=== PATIENT | male | born 1935 | race Caucasian/White ===

== ENCOUNTER 2016-12-26 05:49 | Inpatient (IN) | payer OTHER ==
[~2016-12-26] VITALS: Ht 177.8 cm; Wt 94.7 kg
[~2016-12-26 05:49] MED LIST: AMLODIPINE BESY10 MG PO; ASPIRIN PO; CALCITRIOL0.5 MCG PO; CILOSTAZOL100 MG PO; CRESTOR40 MG PO; HUMULIN 70100 UNIT/1 SC; LISINOPRIL40 MG PO; METOPROLOL TAR100 MG PO; NITROSTAT0.4 MG SL; VITAMIN D-32000 UNI1 PO
[2016-12-26 06:29] LABS: HEMATOCRIT 36.1 % (38.0-50.0); MCH 26.9 PG (29.0-34.0); MCHC 32.1 G/DL (30.0-36.0); MCV 83.8 FL (86-99); MEAN PLAT.VOLUME 10.3 uM^3 (9.0-12.4); PLATELET COUNT 170 K/uL (156-360); RBC DIS.WIDTH-CV 14.4 % (11.8-14.6); RBC DIS.WIDTH-SD 42.5 % (39-53); RED BLOOD COUNT 4.31 M/uL (4.00-5.50); WHITE BLOOD COUNT 7.9 K/uL (4.1-10.2)
[2016-12-26 06:39] LABS: CHLORIDE 109 mEq/L (99-109); POTASSIUM 4.1 mEq/L (3.7-5.4); SODIUM 140 mEq/L (136-147)
[2016-12-26 06:41] LABS: GLUCOSE 140 mg/dL (70-99)
[2016-12-26 06:42] LABS: ANION GAP 11 MEQ/L (2-14)
[2016-12-26 06:45] LABS: GFR ESTIMATE (CALCULATED) 36 mL/min/
[2016-12-26 06:46] LABS: UREA NITROGEN (BUN) 25 mg/dL (9-23)
[2016-12-26 06:49] LABS: D-DIMER ELISA > 4.00 mg/L FEU (< 0.57)
[2016-12-26 06:50] LABS: TROP-I INTERPRETATION NEGATIVE; TROPONIN-I 0.04 ng/mL (0.0-0.30)
[2016-12-26 13:44] LABS: INTER. NORMALIZED RATIO 1.1; PROTHROMBIN TIME 10.7 (9.2-11.2); PTT 28.2 (25-32)
[2016-12-26] MEDS ORDERED: NORVASC5 MG PO (14:17)
[2016-12-26] MEDS ORDERED: CALCITRIOL0.5 MCG PO (14:17)
[2016-12-26] MEDS ORDERED: CARDURA2 M1 PO (14:18)
[2016-12-26] MEDS ORDERED: ZESTRIL40 MG PO (14:18)
[2016-12-26] MEDS ORDERED: NOVOLIN,HU100 UNITS/ SC ×2 (14:20→14:22)
[2016-12-26] MEDS ORDERED: TAMIFLU75 MG PO (14:23)
[2016-12-26] MEDS ORDERED: CILOSTAZOL100 MG PO (14:24)
[2016-12-26] MEDS ORDERED: LOPRESSOR100 M1 PO (14:25)
[2016-12-26] MEDS ORDERED: TYLENOL REGULA325 MG PO ×2 (14:26→14:27)
[2016-12-26] MEDS ORDERED: COUGH DROPS5.8 MG MM (14:28)
[2016-12-26] MEDS ORDERED: DULCOLAX10 MG PR (14:30)
[2016-12-26] MEDS ORDERED: MILK OF MAGN PO (14:31)
[2016-12-26] MEDS ORDERED: MIRALAX17 GM PO (14:32)
[2016-12-26] MEDS ORDERED: NITROSTAT0.4 MG SL (14:33)
[2016-12-26 16:36] VITALS: BP 147/81
[2016-12-26 16:44] LABS: TROP-I INTERPRETATION POSITIVE
[2016-12-26 16:45] LABS: TROPONIN-I 2.33 ng/mL (0.0-0.30)
[2016-12-26 17:49] LABS: POINT-OF-CARE USER ID NUTSLF44
[2016-12-26 20:10] VITALS: BP 166/78
[2016-12-26 22:32] LABS: C DIFF TOXIN NEGATIVE (NEGATIVE)
[2016-12-26 22:36] LABS: PROBE CHECK PASS; SPECIMEN PROCESSING CONTROL PASS
[2016-12-26 23:00] VITALS: BP 106/50
[2016-12-27 01:42] VITALS: BP 169/83
[2016-12-27 03:56] LABS: HEMATOCRIT 35.9 % (38.0-50.0); MCH 26.8 PG (29.0-34.0); MCHC 31.8 G/DL (30.0-36.0); MCV 84.5 FL (86-99); MEAN PLAT.VOLUME 9.8 uM^3 (9.0-12.4); PLATELET COUNT 178 K/uL (156-360); RBC DIS.WIDTH-CV 14.6 % (11.8-14.6); RBC DIS.WIDTH-SD 43.2 % (39-53); RED BLOOD COUNT 4.25 M/uL (4.00-5.50); WHITE BLOOD COUNT 6.2 K/uL (4.1-10.2)
[2016-12-27 04:10] LABS: CHLORIDE 110 mEq/L (99-109); POTASSIUM 4.5 mEq/L (3.7-5.4); SODIUM 142 mEq/L (136-147)
[2016-12-27 04:12] LABS: GLUCOSE 112 mg/dL (70-99)
[2016-12-27 04:13] LABS: ANION GAP 9 MEQ/L (2-14)
[2016-12-27 04:14] LABS: TOTAL BILIRUBIN 0.4 mg/dL (0.0-1.0)
[2016-12-27 04:16] LABS: ALKALINE PHOSPHATASE 93 IU/L (3-129); GFR ESTIMATE (CALCULATED) 36 mL/min/
[2016-12-27 04:17] LABS: UREA NITROGEN (BUN) 28 mg/dL (9-23)
[2016-12-27 04:51] VITALS: BP 139/64
[2016-12-27 07:57] LABS: POINT-OF-CARE METER ID UU13113698
[2016-12-27 08:02] VITALS: BP 128/73
[2016-12-27 12:31] VITALS: BP 148/67
[2016-12-27 12:45] LABS: POINT-OF-CARE METER ID UU13113698
[2016-12-27 15:44] VITALS: BP 167/70
[2016-12-27 17:09] LABS: POINT-OF-CARE METER ID UU13113698
[2016-12-27 19:55] VITALS: BP 163/72
[2016-12-27 21:10] LABS: POINT-OF-CARE METER ID UU13113781
[2016-12-28 00:25] VITALS: BP 165/75
[2016-12-28 04:19] VITALS: BP 148/69
[2016-12-28 07:05] LABS: HEMATOCRIT 35.2 % (38.0-50.0); MCH 25.9 PG (29.0-34.0); MCHC 30.7 G/DL (30.0-36.0); MCV 84.4 FL (86-99); MEAN PLAT.VOLUME 10.4 uM^3 (9.0-12.4); PLATELET COUNT 184 K/uL (156-360); RBC DIS.WIDTH-CV 14.7 % (11.8-14.6); RBC DIS.WIDTH-SD 45.3 % (39-53); RED BLOOD COUNT 4.17 M/uL (4.00-5.50); WHITE BLOOD COUNT 5.6 K/uL (4.1-10.2)
[2016-12-28 07:24] LABS: ANION GAP 6 MEQ/L (2-14); CHLORIDE 108 MEQ/L (99-109); GFR ESTIMATE (CALCULATED) 39 mL/min/; SAMPLE HEMOLYSIS CHECK 0; SAMPLE ICTERIC CHECK 0; SAMPLE LIPEMIA CHECK 0; SODIUM 141 MEQ/L (136-147); UREA NITROGEN (BUN) 33 mg/dL (9-23)
[2016-12-28 07:33] LABS: GLUCOSE 76 mg/dL (70-99)
[2016-12-28 10:05] VITALS: BP 127/59
[2016-12-28 11:07] VITALS: BP 153/69
[2016-12-28 15:19] VITALS: BP 139/89
[2016-12-28 19:15] VITALS: BP 163/70
[2016-12-28 21:29] LABS: POINT-OF-CARE METER ID UU14174216
[2016-12-29 00:10] VITALS: BP 136/69
[2016-12-29 04:10] VITALS: BP 162/76
[2016-12-29 06:17] LABS: HEMATOCRIT 34.9 % (38.0-50.0); MCH 25.7 PG (29.0-34.0); MCHC 30.4 G/DL (30.0-36.0); MCV 84.7 FL (86-99); MEAN PLAT.VOLUME 10.8 uM^3 (9.0-12.4); PLATELET COUNT 199 K/uL (156-360); RBC DIS.WIDTH-CV 14.7 % (11.8-14.6); RBC DIS.WIDTH-SD 45.4 % (39-53); RED BLOOD COUNT 4.12 M/uL (4.00-5.50); WHITE BLOOD COUNT 5.1 K/uL (4.1-10.2)
[2016-12-29 06:45] LABS: ANION GAP 6 MEQ/L (2-14); CHLORIDE 108 MEQ/L (99-109); GFR ESTIMATE (CALCULATED) 36 mL/min/; POTASSIUM 4.2 MEQ/L (3.7-5.4); SAMPLE HEMOLYSIS CHECK 0; SAMPLE ICTERIC CHECK 0; SAMPLE LIPEMIA CHECK 0; SODIUM 139 MEQ/L (136-147); UREA NITROGEN (BUN) 33 mg/dL (9-23)
[2016-12-29 06:46] LABS: GLUCOSE 233 mg/dL (70-99)
[2016-12-29 07:30] VITALS: BP 132/62
[2016-12-29 08:00] LABS: POINT-OF-CARE METER ID UU13113781; POINT-OF-CARE USER ID NUTSLF44
[2016-12-29] MEDS ORDERED: ELIQUIS2.5 MG PO (10:19)
[2016-12-29 11:38] LABS: POINT-OF-CARE METER ID UU13113698
[2016-12-29 11:57] VITALS: BP 108/56
== END 2016-12-29 13:25 | DRG 176 ==
LOC: EME 05:49 → 4EAST 13:24 → EDOF 13:24 → 4EAST 16:21
PROVIDERS: Emergency Medicine; Hospitalist; Internal Medicine
DX: I26.99 Other pulmonary embolism without acute cor pulmonale (principal); I82.441 Acute embolism and thrombosis of right tibial vein; R09.02 Hypoxemia; R19.7 Diarrhea, unspecified; R79.89 Other specified abnormal findings of blood chemistry; I12.9 Hypertensive chronic kidney disease with stage 1 through stage 4 chronic kidney disease, or unspecified chronic kidney disease; N18.3 Chronic kidney disease, stage 3 (moderate); E11.22 Type 2 diabetes mellitus with diabetic chronic kidney disease; E11.59 Type 2 diabetes mellitus with other circulatory complications; I25.5 Ischemic cardiomyopathy; I25.10 Atherosclerotic heart disease of native coronary artery without angina pectoris; D64.9 Anemia, unspecified; E78.5 Hyperlipidemia, unspecified; I73.9 Peripheral vascular disease, unspecified; Z66 Do not resuscitate; I25.2 Old myocardial infarction; Z98.61 Coronary angioplasty status; Z89.212 Acquired absence of left upper limb below elbow; Z86.718 Personal history of other venous thrombosis and embolism; Z85.038 Personal history of other malignant neoplasm of large intestine; Z87.891 Personal history of nicotine dependence; Z79.82 Long term (current) use of aspirin
CPT/HCPCS: 71010; 78582; 80048; 80053; 82948; 83880; 84484; 85027; 85379; 85610; 85730; 87040; 87493; 87506; 93005; 93970; 99202; 99281; 99285; A9540; A9567; J1815

== ENCOUNTER 2017-10-07 09:37 | Emergency (ER) | payer OTHER ==
[~2017-10-07] VITALS: Ht 177.8 cm; Wt 95.5 kg
[~2017-10-07 09:37] MED LIST changes: +CARDURA2 M1 PO; +COUGH DROPS5.8 MG MM; +DULCOLAX10 MG PR; +ELIQUIS2.5 MG PO; +LOPRESSOR100 M1 PO; +MILK OF MAGN PO; +MIRALAX17 GM PO; +NORVASC5 MG PO; +NOVOLIN,HU100 UNITS/ SC; +TAMIFLU75 MG PO; +TYLENOL REGULA325 MG PO; +ZESTRIL40 MG PO
[2017-10-07 13:15] VITALS: BP 162/72
== END 2017-10-07 13:35 ==
LOC: EME 09:37
DX: S00.03XA Contusion of scalp, initial encounter (principal); W18.30XA Fall on same level, unspecified, initial encounter; Y93.01 Activity, walking, marching and hiking; Y92.121 Bathroom in nursing home as the place of occurrence of the external cause; F03.90 Unspecified dementia, unspecified severity, without behavioral disturbance, psychotic disturbance, mood disturbance, and anxiety; I25.2 Old myocardial infarction; E11.22 Type 2 diabetes mellitus with diabetic chronic kidney disease; I12.9 Hypertensive chronic kidney disease with stage 1 through stage 4 chronic kidney disease, or unspecified chronic kidney disease; N18.3 Chronic kidney disease, stage 3 (moderate); Z86.718 Personal history of other venous thrombosis and embolism; Z79.4 Long term (current) use of insulin; Z79.01 Long term (current) use of anticoagulants; G93.89 Other specified disorders of brain; Z89.212 Acquired absence of left upper limb below elbow; Z85.038 Personal history of other malignant neoplasm of large intestine; F32.9 Major depressive disorder, single episode, unspecified; Z95.5 Presence of coronary angioplasty implant and graft; Z87.891 Personal history of nicotine dependence; Z85.068 Personal history of other malignant neoplasm of small intestine
CPT/HCPCS: 70450; 99281; 99284

== ENCOUNTER 2017-12-14 15:41 | Inpatient (IN) | payer OTHER ==
[~2017-12-14] VITALS: Ht 914.4 cm; Wt 92.3 kg
[2017-12-14 17:05] LABS: HEMOGLOBIN 12.9 G/DL (12.5-16.6); MCH 29.9 PG (29.0-34.0); MCHC 33.1 G/DL (30.0-36.0); MCV 90.5 FL (86-99); PLATELET COUNT 191 K/uL (156-360); RBC DIS.WIDTH-CV 13.4 % (11.8-14.6); RBC DIS.WIDTH-SD 44.9 % (39-53); RED BLOOD COUNT 4.31 M/uL (4.00-5.50); WHITE BLOOD COUNT 15.6 K/uL (4.1-10.2)
[2017-12-14 17:19] LABS: CHLORIDE 109 mEq/L (99-109); POTASSIUM 3.7 mEq/L (3.7-5.4); SODIUM 143 mEq/L (136-147)
[2017-12-14 17:19] LABS: APPEARANCE TURBID ((CLEAR)); BILIRUBIN NEGATIVE; BLOOD LARGE; COLOR AMBER ((YELLOW)); GLUCOSE (STRIP) >=500; KETONES 5; LEUKOCYTES LARGE; NITRITE NEGATIVE; PROTEIN (STRIP) 100; SPECIFIC GRAVITY 1.014 (1.000-1.030); UROBILINOGEN 0.2 MG/DL (0.2-1.0)
[2017-12-14 17:24] LABS: CREATININE 2.2 mg/dL (0.6-1.3); GFR ESTIMATE (CALCULATED) 31 mL/min/ (58.99-99999)
[2017-12-14 17:25] LABS: UREA NITROGEN (BUN) 57 mg/dL (9-23)
[2017-12-14 17:26] LABS: GLUCOSE 114 mg/dL (70-99)
[2017-12-14 17:39] LABS: WHITE BLOOD CELLS TNTC /HPF (0-5)
[2017-12-14] MEDS ORDERED: COLACE100 MG PO (19:05)
[2017-12-14] MEDS ORDERED: HUMULIN 70100 UNIT/2 SC (19:08)
[2017-12-14] MEDS ORDERED: ZESTRIL10 MG PO (19:08)
[2017-12-14] MEDS ORDERED: LASIX20 MG PO (19:08)
[2017-12-14] MEDS ORDERED: PRILOSEC20 MG PO (19:09)
[2017-12-14] MEDS ORDERED: ULTRAM50 MG PO ×2 (19:10→19:21)
[2017-12-14] MEDS ORDERED: BIOFREEZE TP (19:12)
[2017-12-14] MEDS ORDERED: NOVOLOG 10100 UNITS/ SC (19:13)
[2017-12-14] MEDS ORDERED: NOVOLOG PE100 UNITS/ SC (19:15)
[2017-12-14] MEDS ORDERED: MACRODANTIN100 MG PO (19:16)
[2017-12-14] MEDS ORDERED: DULCOLAX10 MG PR (19:18)
[2017-12-14] MEDS ORDERED: GENTAMICIN40 MG/1 ML PO (19:19)
[2017-12-14 20:17] LABS: PHOSPHORUS 1.8 mg/dL (2.5-4.9)
[2017-12-14 21:25] VITALS: BP 156/67
[2017-12-14 23:35] VITALS: BP 154/67
[2017-12-15 02:44] LABS: C DIFF TOXIN NEGATIVE (NEGATIVE)
[2017-12-15 05:47] LABS: HEMATOCRIT 37.5 % (38.0-50.0); HEMOGLOBIN 12.5 G/DL (12.5-16.6); MCH 30.5 PG (29.0-34.0); MCHC 33.3 G/DL (30.0-36.0); MCV 91.5 FL (86-99); NRBC (%) 0.4 /100 WBC (0-0); RBC DIS.WIDTH-CV 13.8 % (11.8-14.6); RBC DIS.WIDTH-SD 46.3 % (39-53); WHITE BLOOD COUNT 14.3 K/uL (4.1-10.2)
[2017-12-15 06:01] LABS: ALBUMIN 2.6 G/DL (3.2-4.8); ALKALINE PHOSPHATASE 96 IU/L (3-129); ALT (GPT) 15 IU/L (3-49); AST (GOT) 32 IU/L (2-34); CHLORIDE 114 MEQ/L (99-109); GFR ESTIMATE (CALCULATED) 34 mL/min/ (58.99-99999); GLUCOSE 96 mg/dL (70-99); PHOSPHORUS 2.7 mg/dL (2.5-4.9); POTASSIUM 4.3 MEQ/L (3.7-5.4); SODIUM 147 MEQ/L (136-147); TOTAL BILIRUBIN 0.5 MG/DL (0.0-1.0); TOTAL PROTEIN 5.5 G/DL (6.4-8.3); UREA NITROGEN (BUN) 48 mg/dL (9-23)
[2017-12-15 06:26] LABS: PLAT.SUFFICIENCY ADEQUATE; PLATELET COUNT 156 K/uL (156-360)
[2017-12-15 08:00] VITALS: BP 158/70
[2017-12-15 13:37] LABS: HEMOGLOBIN A1c (GLYCOHEMOGLOB) 9.3 % (Below 5.7)
[2017-12-15 15:51] VITALS: BP 132/61
[2017-12-16 02:54] VITALS: BP 124/70
[2017-12-16 06:08] LABS: CHLORIDE 117 MEQ/L (99-109); GFR ESTIMATE (CALCULATED) 34 mL/min/ (58.99-99999); HDL CHOLESTEROL 27 MG/DL (Desirable>=40); LDL CHOLESTEROL 119 mg/dL (Desirable<100); NON-HDL CHOLESTEROL 136 mg/dL (Desirable<160); POTASSIUM 3.7 MEQ/L (3.7-5.4); SODIUM 151 MEQ/L (136-147); TOTAL CHOLESTEROL 163 mg/dL (Desirable<200); TRIGLYCERIDES 87 MG/DL (Normal: <150); UREA NITROGEN (BUN) 49 mg/dL (9-23)
[2017-12-16 06:09] LABS: GLUCOSE 157 mg/dL (70-99)
[2017-12-16 06:10] LABS: BASOPHIL (%) 0.4 % (0-1); BASOPHIL COUNT 0.1 K/uL (0-0.1); EOSINOPHIL (%) 0.5 % (0-5); EOSINOPHIL COUNT 0.1 K/uL (0-0.3); HEMATOCRIT 35.6 % (38.0-50.0); HEMOGLOBIN 11.4 G/DL (12.5-16.6); IMMATURE GRANULOCYTE (%) 0.7 % (0.0-0.7); LYMPHOCYTE COUNT 1.3 K/uL (1.0-2.8); MCH 30.1 PG (29.0-34.0); MCV 93.9 FL (86-99); MONOCYTE COUNT 1.4 K/uL (0-0.8); NEUTROPHIL (%) 79.4 % (45-76); NEUTROPHIL COUNT 11.1 K/uL (1.8-6.4); PLATELET COUNT 195 K/uL (156-360); RBC DIS.WIDTH-CV 13.9 % (11.8-14.6); RBC DIS.WIDTH-SD 47.9 % (39-53); RED BLOOD COUNT 3.79 M/uL (4.00-5.50); WHITE BLOOD COUNT 13.9 K/uL (4.1-10.2)
[2017-12-16 07:55] VITALS: BP 132/56
[2017-12-16 16:04] VITALS: BP 124/59
[2017-12-16 17:11] LABS: CHLORIDE 114 MEQ/L (99-109); POTASSIUM 3.8 MEQ/L (3.7-5.4); SODIUM 148 MEQ/L (136-147)
[2017-12-16 17:17] LABS: GFR ESTIMATE (CALCULATED) 34 mL/min/ (58.99-99999); GLUCOSE 122 mg/dL (70-99); UREA NITROGEN (BUN) 44 mg/dL (9-23)
[2017-12-16 23:58] VITALS: BP 137/64
[2017-12-17 05:42] LABS: BASOPHIL (%) 0.3 % (0-1); EOSINOPHIL (%) 1.2 % (0-5); EOSINOPHIL COUNT 0.1 K/uL (0-0.3); HEMATOCRIT 35.6 % (38.0-50.0); HEMOGLOBIN 11.3 G/DL (12.5-16.6); LYMPHOCYTE (%) 10.3 % (15-42); LYMPHOCYTE COUNT 1.1 K/uL (1.0-2.8); MCH 29.7 PG (29.0-34.0); MCHC 31.7 G/DL (30.0-36.0); MCV 93.7 FL (86-99); MONOCYTE (%) 9.6 % (3-12); NEUTROPHIL (%) 77.6 % (45-76); NEUTROPHIL COUNT 8.4 K/uL (1.8-6.4); PLATELET COUNT 205 K/uL (156-360); RBC DIS.WIDTH-CV 14.1 % (11.8-14.6); WHITE BLOOD COUNT 10.9 K/uL (4.1-10.2)
[2017-12-17 06:04] LABS: CHLORIDE 116 MEQ/L (99-109); CREATININE 2.1 MG/DL (0.6-1.3); GFR ESTIMATE (CALCULATED) 32 mL/min/ (58.99-99999); POTASSIUM 3.6 MEQ/L (3.7-5.4); SODIUM 151 MEQ/L (136-147); UREA NITROGEN (BUN) 45 mg/dL (9-23)
[2017-12-17 06:05] LABS: GLUCOSE 198 mg/dL (70-99)
[2017-12-17 08:10] VITALS: BP 151/65
[2017-12-17 11:51] VITALS: BP 114/60
[2017-12-17 15:48] VITALS: BP 149/69
[2017-12-17 19:25] VITALS: BP 148/67
[2017-12-17 23:54] VITALS: BP 129/80
[2017-12-18 04:01] VITALS: BP 147/65
[2017-12-18 05:52] LABS: BASOPHIL (%) 0.4 % (0-1); EOSINOPHIL (%) 1.6 % (0-5); EOSINOPHIL COUNT 0.2 K/uL (0-0.3); HEMATOCRIT 36.5 % (38.0-50.0); HEMOGLOBIN 11.7 G/DL (12.5-16.6); IMMATURE GRANULOCYTE (%) 1.4 % (0.0-0.7); LYMPHOCYTE (%) 11.9 % (15-42); LYMPHOCYTE COUNT 1.3 K/uL (1.0-2.8); MCH 30.1 PG (29.0-34.0); MCHC 32.1 G/DL (30.0-36.0); MCV 93.8 FL (86-99); MONOCYTE (%) 8.3 % (3-12); MONOCYTE COUNT 0.9 K/uL (0-0.8); NEUTROPHIL (%) 76.4 % (45-76); NEUTROPHIL COUNT 8.2 K/uL (1.8-6.4); PLATELET COUNT 233 K/uL (156-360); RBC DIS.WIDTH-CV 14.1 % (11.8-14.6); RED BLOOD COUNT 3.89 M/uL (4.00-5.50); WHITE BLOOD COUNT 10.8 K/uL (4.1-10.2)
[2017-12-18 06:20] LABS: CHLORIDE 110 MEQ/L (99-109); GFR ESTIMATE (CALCULATED) 34 mL/min/ (58.99-99999); GLUCOSE 273 mg/dL (70-99); POTASSIUM 3.8 MEQ/L (3.7-5.4); SODIUM 145 MEQ/L (136-147); UREA NITROGEN (BUN) 41 mg/dL (9-23)
[2017-12-18 08:15] VITALS: BP 129/75
[2017-12-18 11:55] VITALS: BP 131/74
[2017-12-18 16:20] VITALS: BP 146/67
[2017-12-18 19:29] VITALS: BP 144/64
[2017-12-18 23:49] VITALS: BP 127/61
[2017-12-19 04:21] VITALS: BP 138/60
[2017-12-19 06:32] LABS: BASOPHIL (%) 0.3 % (0-1); EOSINOPHIL (%) 1.4 % (0-5); EOSINOPHIL COUNT 0.2 K/uL (0-0.3); HEMATOCRIT 33.3 % (38.0-50.0); HEMOGLOBIN 10.8 G/DL (12.5-16.6); IMMATURE GRANULOCYTE (%) 1.8 % (0.0-0.7); LYMPHOCYTE (%) 14.6 % (15-42); LYMPHOCYTE COUNT 1.6 K/uL (1.0-2.8); MCH 29.8 PG (29.0-34.0); MCHC 32.4 G/DL (30.0-36.0); MCV 91.7 FL (86-99); MONOCYTE COUNT 0.8 K/uL (0-0.8); NEUTROPHIL (%) 74.9 % (45-76); NEUTROPHIL COUNT 8.4 K/uL (1.8-6.4); PLATELET COUNT 234 K/uL (156-360); RBC DIS.WIDTH-CV 13.7 % (11.8-14.6); RBC DIS.WIDTH-SD 46.3 % (39-53); RED BLOOD COUNT 3.63 M/uL (4.00-5.50); WHITE BLOOD COUNT 11.2 K/uL (4.1-10.2)
[2017-12-19 06:54] VITALS: BP 147/64
[2017-12-19 07:19] LABS: CHLORIDE 107 MEQ/L (99-109); CREATININE 1.9 MG/DL (0.6-1.3); GFR ESTIMATE (CALCULATED) 36 mL/min/ (58.99-99999); POTASSIUM 3.6 MEQ/L (3.7-5.4); SODIUM 142 MEQ/L (136-147); UREA NITROGEN (BUN) 39 mg/dL (9-23)
[2017-12-19 07:24] LABS: GLUCOSE 128 mg/dL (70-99)
[2017-12-19 11:16] VITALS: BP 137/69
[2017-12-19 15:10] VITALS: BP 136/62
[2017-12-19 19:54] VITALS: BP 145/62
[2017-12-19 23:33] VITALS: BP 131/65
[2017-12-20 03:41] VITALS: BP 131/66
[2017-12-20 06:48] LABS: BASOPHIL (%) 0.4 % (0-1); EOSINOPHIL (%) 1.4 % (0-5); EOSINOPHIL COUNT 0.2 K/uL (0-0.3); HEMATOCRIT 34.3 % (38.0-50.0); HEMOGLOBIN 10.8 G/DL (12.5-16.6); IMMATURE GRANULOCYTE (%) 1.6 % (0.0-0.7); LYMPHOCYTE (%) 14.5 % (15-42); LYMPHOCYTE COUNT 1.5 K/uL (1.0-2.8); MCHC 31.5 G/DL (30.0-36.0); MONOCYTE (%) 7.2 % (3-12); MONOCYTE COUNT 0.8 K/uL (0-0.8); NEUTROPHIL (%) 74.9 % (45-76); NEUTROPHIL COUNT 7.7 K/uL (1.8-6.4); PLATELET COUNT 266 K/uL (156-360); RBC DIS.WIDTH-CV 13.4 % (11.8-14.6); RBC DIS.WIDTH-SD 45.5 % (39-53); RED BLOOD COUNT 3.73 M/uL (4.00-5.50); WHITE BLOOD COUNT 10.4 K/uL (4.1-10.2)
[2017-12-20 06:54] VITALS: BP 174/80
[2017-12-20 07:05] LABS: CHLORIDE 107 MEQ/L (99-109); CREATININE 1.9 MG/DL (0.6-1.3); GFR ESTIMATE (CALCULATED) 36 mL/min/ (58.99-99999); POTASSIUM 3.8 MEQ/L (3.7-5.4); SODIUM 145 MEQ/L (136-147); UREA NITROGEN (BUN) 35 mg/dL (9-23)
[2017-12-20 07:09] LABS: GLUCOSE 62 mg/dL (70-99)
[2017-12-20 11:09] VITALS: BP 129/61
[2017-12-20] MEDS ORDERED: CIPROFLOXACIN500 M1 PO (15:02)
[2017-12-20] MEDS ORDERED: FINASTERIDE5 MG PO (15:03)
[2017-12-20 15:13] VITALS: BP 134/67
== END 2017-12-20 17:53 | DRG 871 ==
LOC: EME 15:41 → 5SOUTH 19:05 → EDOF 19:05 → ENRESERV 19:07 → 5SOUTH 20:54
PROVIDERS: Internal Medicine; Internal Medicine Nephrology; Physician Assistant
DX: A41.51 Sepsis due to Escherichia coli [E. coli] (principal); G93.40 Encephalopathy, unspecified; N17.9 Acute kidney failure, unspecified; N39.0 Urinary tract infection, site not specified; E87.70 Fluid overload, unspecified; N12 Tubulo-interstitial nephritis, not specified as acute or chronic; E87.1 Hypo-osmolality and hyponatremia; R33.8 Other retention of urine; S00.81XA Abrasion of other part of head, initial encounter; I25.10 Atherosclerotic heart disease of native coronary artery without angina pectoris; N40.1 Benign prostatic hyperplasia with lower urinary tract symptoms; E11.51 Type 2 diabetes mellitus with diabetic peripheral angiopathy without gangrene; E11.22 Type 2 diabetes mellitus with diabetic chronic kidney disease; E78.5 Hyperlipidemia, unspecified; I12.9 Hypertensive chronic kidney disease with stage 1 through stage 4 chronic kidney disease, or unspecified chronic kidney disease; Z66 Do not resuscitate; E83.39 Other disorders of phosphorus metabolism; E87.0 Hyperosmolality and hypernatremia; E78.00 Pure hypercholesterolemia, unspecified; N41.9 Inflammatory disease of prostate, unspecified; N18.3 Chronic kidney disease, stage 3 (moderate); F03.90 Unspecified dementia, unspecified severity, without behavioral disturbance, psychotic disturbance, mood disturbance, and anxiety; N45.3 Epididymo-orchitis; E87.6 Hypokalemia; W05.0XXA Fall from non-moving wheelchair, initial encounter; Z98.61 Coronary angioplasty status; Z79.4 Long term (current) use of insulin; I25.2 Old myocardial infarction; Z87.891 Personal history of nicotine dependence; Z87.440 Personal history of urinary (tract) infections; Z86.718 Personal history of other venous thrombosis and embolism; Z86.711 Personal history of pulmonary embolism; Z85.068 Personal history of other malignant neoplasm of small intestine; Z90.49 Acquired absence of other specified parts of digestive tract; Z82.49 Family history of ischemic heart disease and other diseases of the circulatory system
CPT/HCPCS: 70450; 71045; 73522; 74176; 80048; 80048 91; 80053; 80061; 81003; 82948; 83036; 83605; 83880; 83935; 84100; 84300; 85025; 85027; 87040; 87077; 87086; 87186; 87493; 92526 GN; 92610 GN; 93005; 93306; 97530 GP; 99281; 99285; J0696; J0744; J1815; J1940; J3480; J7030; J7040; J7070